=== PATIENT | male | born 2000 | race Caucasian/White ===

== ENCOUNTER 2021-06-25 10:36 | Inpatient (IN) ==
--- NOTE | 2021-06-25 11:05 | Emergency Department Note ---
Impression & Plan Suicidal ideation, Mood disorder ED Provider Note NAME: MEGAN CHAPPELL AGE: 20 SEX: M : 2000 ARRIVES VIA: [employer] INFORMANT: Patient ED PROVIDER(S): Antolin Matute DO CHIEF COMPLAINT: Suicidal and homicidal ideations HPI: Patient is a 21-year-old male who presents ER for suicidal and homicidal ideations. He notes these have been present for the past 2 weeks and gradually getting worse. Has been having more more difficulty trying to control them. He notes they are very sporadic and come with impulses and urges. He will see a knife and think about stabbing himself or see a building which is tall and think about jumping off. The same thing goes for when he sees someone. Intermittently things will drive him to want to kill someone but then he rationalizes it and is able to suppress these thoughts. He denies any auditory visual hallucinations. He has been eating and drinking. Stressors are his girlfriend as well in his school. He was on with caps today and was expressing these thoughts and consequently was brought in. He is agreeable for inpatient treatment. Admits to previous inpatient treatment in [place]. ROS: See above HPI for pertinent positives & negatives. A total of 10 systems reviewed and were otherwise negative. PAST MEDICAL HISTORY:See Below PAST SURGICAL HISTORY:See Below FAMILY HISTORY:See Below SOCIAL HISTORY:See Below HOME MEDICATIONS:See Below ALLERGIES:See Below VITALS:See Below PHYSICAL EXAMINATION: GENERAL: Sitting up in bed, alert, well appearing, well nourished, no distress, non-toxic EYE EXAM: normal conjunctiva. OROPHARYNX: no exudate, no erythema, lips, buccal mucosa, and tongue normal and mucous membranes are moist NECK: supple, no nuchal rigidity, no adenopathy, non-tender LUNGS: Clear to auscultation. Normal chest wall mechanics HEART: no murmurs, S1 normal and S2 normal ABDOMEN: abdomen soft, non-tender, normo-active bowel sounds, no masses, no rebound or guarding. BACK: Back is symmetrical on inspection and there is no deformity, no midline tenderness, no CVA tenderness. SKIN: no rashes and no bruising UPPER EXTREMITIES: upper extremities are grossly normal. LOWER EXTREMITIES: No pitting edema. NEURO EXAM: Normal sensorium, cranial nerves II-XII grossly intact, normal speech, no gross weakness of arms, no gross weakness of legs. PSYCH: Admits to SI and HI MEDICAL DECISION MAKING: Patient is a 20-year-old male who presents ER with above-stated complaint. He admits to suicidal ideations and homicidal ideations. IV was established blood work was obtained. Labs show mild leukopenia 4000. No significant anemia. BMP along with LFTs bilirubin and TSH was unremarkable. UA was clean. Tox was negative. Alcohol was negative. COVID was negative. He was medically stable and accepted to [address]. Start Time: 1100 Reason: Patient with PMHx of suicidal ideations underwent ED Observation for []. Fam Hx: No pertinent family history SocHx: See Below Assessment(s): Reevaluated multiple times resting comfortably Summary: As dictated in [facility] Disposition: 1430 on 06/25/2021 Total Time: 6hrs Triage Nursing notes reviewed. Limited review of prior medical records performed Vital Signs: reviewed and remarkable for HTN Differential diagnosis: Mood disorder, infection, hypoglycemia, electrolyte abnormalities, cardiac sources, intracerebral event, toxicologic, trauma, neurologic, as well as other pathologies. ER treatment provided: See below Diagnostics interpreted by me: Laboratory studies: As stated above and show below. 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 Beliefs That Will Affect Care: None Feels Safe at Home: Yes Assistive Devices: Glasses Home Meds Home Medications Medication Instructions Recorded Confirmed oxcarbazepine 300 mg PO BID 06/25/21 06/25/21 quetiapine 50 mg PO DIRECTED PRN 06/25/21 06/25/21 quetiapine 300 mg PO DAILY 06/25/21 06/25/21 Results & Data (ED) Vital Signs Vital Signs - 24 hr 06/25/21 10:42 Temperature 37.1 C Temperature Source Oral Pulse Rate 77 Pulse Rhythm Regular Pulse Strength Normal Respiratory Rate 20 Respiratory Effort / Characteristics Non-Labored Spontaneous Respiratory Depth Normal Respiratory Pattern Regular Blood Pressure 145/74 H Blood Pressure Mean 97 Blood Pressure Position Sitting Pulse Oximetry 99 Oxygen Delivery Method Room Air Sepsis Recent Fever Within 48 Hours No Sepsis New/Unexplained Change in Mental Status N/A Sepsis Action Taken by Nursing No Action Required Laboratory Data Result diagrams: 06/25/21 11:16 06/25/21 11:16 Lab Results 06/25/21 06/25/21 06/25/21 Range/Units 10:53 10:53 11:04 WBC (4.8-10.8) K/uL RBC (4.7-6.1) M/uL Hgb (14.0-18.0) g/dL Hct (42-52) % MCV (80-100) fL MCH (25-34) pg MCHC (32-36) g/dL RDW Std Deviation (36.4-46.3) fL RDW Coeff of Teressa (11.5-14.5) % Plt Count (130-400) K/uL MPV (7.4-10.4) fL Immature Gran % (Auto) % Neut % (Auto) % Lymph % (Auto) % Crisp % (Auto) % Eos % (Auto) % Baso % (Auto) % Neut # (Auto) (1.4-6.5) K/uL Lymph # (Auto) (1.2-3.4) K/uL Crisp # (Auto) (0.11-0.59) K/uL Eos # (Auto) (0-0.5) K/uL Baso # (Auto) (0-0.2) K/uL Immature Gran # (Auto) (0.00-0.02) K/uL Sodium (136-145) mmol/L Potassium (3.5-5.1) mmol/L Chloride (98-107) mmol/L Carbon Dioxide (21-32) mmol/L Anion Gap (3-11) BUN (6-23) mg/dl Creatinine (0.6-1.4) mg/dl Est Cr Clr Drug Dosing ml/min Est GFR ( Amer) ml/min Est GFR (Non-Af Amer) ml/min BUN/Creatinine Ratio (10-20) Glucose (70-99(Fasting)) mg/dl Calcium (8.5-10.1) mg/dl Total Bilirubin (0.2-1.0) mg/dl AST (13-39) U/L ALT (7-52) U/L Alkaline Phosphatase (34-104) U/L Total Protein (6.0-8.3) gm/dl Albumin (3.4-5.0) gm/dl Globulin (2.5-4.0) gm/dl Albumin/Globulin Ratio (0.9-2) TSH (0.300-4.500) uIu/ml Urine Color Yellow Urine Appearance Clear (Clear) Urine pH 6.5 (4.5-7.5) Ur Specific [place] 1.007 (1.000-1.030) Urine Protein Negative (Negative) Urine Glucose (UA) Negative (Negative) Urine Ketones Negative (Negative) Urine Blood Negative (Negative) Urine Nitrite Negative (Negative) Urine Bilirubin Negative (Negative) Urine Urobilinogen Negative (Negative) Ur Leukocyte Esterase Negative (Negative) Salicylates (3.0-30) mg/dl Urine Opiates Screen Neg (Neg) Ur Methadone, Qual Neg (Neg) Acetaminophen (10-30) ug/ml Urine Barbiturates Neg (Neg) Ur Phencyclidine (PCP) Neg (Neg) U Amphetamin/Meth Scrn Neg (Neg) MDMA (Ecstasy) Screen Neg (Neg) U Benzodiazepines Scrn Neg (Neg) Ur Cocaine Metabolite Neg (Neg) U Marijuana (THC) Screen Neg (Neg) Ethyl Alcohol mg/dL (<10.0) mg/dl SARS-CoV-2, RNA, NAAT NEGATIVE (NEGATIVE) 06/25/21 06/25/21 06/25/21 Range/Units 11:16 11:16 11:16 WBC 4.78 L (4.8-10.8) K/uL RBC 5.38 (4.7-6.1) M/uL Hgb 16.2 (14.0-18.0) g/dL Hct 46.5 (42-52) % MCV 86.4 (80-100) fL MCH 30.1 (25-34) pg MCHC 34.8 (32-36) g/dL RDW Std Deviation 40.9 (36.4-46.3) fL RDW Coeff of Teressa 12.9 (11.5-14.5) % Plt Count 262 (130-400) K/uL MPV 9.8 (7.4-10.4) fL Immature Gran % (Auto) 0.4 % Neut % (Auto) 52.6 % Lymph % (Auto) 33.7 % Crisp % (Auto) 9.8 % Eos % (Auto) 3.1 % Baso % (Auto) 0.4 % Neut # (Auto) 2.51 (1.4-6.5) K/uL Lymph # (Auto) 1.61 (1.2-3.4) K/uL Crisp # (Auto) 0.47 (0.11-0.59) K/uL Eos # (Auto) 0.15 (0-0.5) K/uL Baso # (Auto) 0.02 (0-0.2) K/uL Immature Gran # (Auto) 0.02 (0.00-0.02) K/uL Sodium 139 (136-145) mmol/L Potassium 4.5 (3.5-5.1) mmol/L Chloride 105 (98-107) mmol/L Carbon Dioxide 30 (21-32) mmol/L Anion Gap 4 (3-11) BUN 13 (6-23) mg/dl Creatinine 1.22 (0.6-1.4) mg/dl Est Cr Clr Drug Dosing 120.4 ml/min Est GFR ( Amer) 98.3 ml/min Est GFR (Non-Af Amer) 84.8 ml/min BUN/Creatinine Ratio 10.7 (10-20) Glucose 87 (70-99(Fasting)) mg/dl Calcium 9.5 (8.5-10.1) mg/dl Total Bilirubin 0.6 (0.2-1.0) mg/dl AST 16 (13-39) U/L ALT 15 (7-52) U/L Alkaline Phosphatase 89 (34-104) U/L Total Protein 7.0 (6.0-8.3) gm/dl Albumin 4.5 (3.4-5.0) gm/dl Globulin 2.5 (2.5-4.0) gm/dl Albumin/Globulin Ratio 1.8 (0.9-2) TSH 1.987 (0.300-4.500) uIu/ml Urine Color Urine Appearance (Clear) Urine pH (4.5-7.5) Ur Specific [place] (1.000-1.030) Urine Protein (Negative) Urine Glucose (UA) (Negative) Urine Ketones (Negative) Urine Blood (Negative) Urine Nitrite (Negative) Urine Bilirubin (Negative) Urine Urobilinogen (Negative) Ur Leukocyte Esterase (Negative) Salicylates (3.0-30) mg/dl Urine Opiates Screen (Neg) Ur Methadone, Qual (Neg) Acetaminophen (10-30) ug/ml Urine Barbiturates (Neg) Ur Phencyclidine (PCP) (Neg) U Amphetamin/Meth Scrn (Neg) MDMA (Ecstasy) Screen (Neg) U Benzodiazepines Scrn (Neg) Ur Cocaine Metabolite (Neg) U Marijuana (THC) Screen (Neg) Ethyl Alcohol mg/dL (<10.0) mg/dl SARS-CoV-2, RNA, NAAT (NEGATIVE) 06/25/21 06/25/21 Range/Units 11:16 11:16 WBC (4.8-10.8) K/uL RBC (4.7-6.1) M/uL Hgb (14.0-18.0) g/dL Hct (42-52) % MCV (80-100) fL MCH (25-34) pg MCHC (32-36) g/dL RDW Std Deviation (36.4-46.3) fL RDW Coeff of Teressa (11.5-14.5) % Plt Count (130-400) K/uL MPV (7.4-10.4) fL Immature Gran % (Auto) % Neut % (Auto) % Lymph % (Auto) % Crisp % (Auto) % Eos % (Auto) % Baso % (Auto) % Neut # (Auto) (1.4-6.5) K/uL Lymph # (Auto) (1.2-3.4) K/uL Crisp # (Auto) (0.11-0.59) K/uL Eos # (Auto) (0-0.5) K/uL Baso # (Auto) (0-0.2) K/uL Immature Gran # (Auto) (0.00-0.02) K/uL Sodium (136-145) mmol/L Potassium (3.5-5.1) mmol/L Chloride (98-107) mmol/L Carbon Dioxide (21-32) mmol/L Anion Gap (3-11) BUN (6-23) mg/dl Creatinine (0.6-1.4) mg/dl Est Cr Clr Drug Dosing ml/min Est GFR ( Amer) ml/min Est GFR (Non-Af Amer) ml/min BUN/Creatinine Ratio (10-20) Glucose (70-99(Fasting)) mg/dl Calcium (8.5-10.1) mg/dl Total Bilirubin (0.2-1.0) mg/dl AST (13-39) U/L ALT (7-52) U/L Alkaline Phosphatase (34-104) U/L Total Protein (6.0-8.3) gm/dl Albumin (3.4-5.0) gm/dl Globulin (2.5-4.0) gm/dl Albumin/Globulin Ratio (0.9-2) TSH (0.300-4.500) uIu/ml Urine Color Urine Appearance (Clear) Urine pH (4.5-7.5) Ur Specific [place] (1.000-1.030) Urine Protein (Negative) Urine Glucose (UA) (Negative) Urine Ketones (Negative) Urine Blood (Negative) Urine Nitrite (Negative) Urine Bilirubin (Negative) Urine Urobilinogen (Negative) Ur Leukocyte Esterase (Negative) Salicylates < 3.0 L (3.0-30) mg/dl Urine Opiates Screen (Neg) Ur Methadone, Qual (Neg) Acetaminophen < 3 L (10-30) ug/ml Urine Barbiturates (Neg) Ur Phencyclidine (PCP) (Neg) U Amphetamin/Meth Scrn (Neg) MDMA (Ecstasy) Screen (Neg) U Benzodiazepines Scrn (Neg) Ur Cocaine Metabolite (Neg) U Marijuana (THC) Screen (Neg) Ethyl Alcohol mg/dL < 10.0 (<10.0) mg/dl SARS-CoV-2, RNA, NAAT (NEGATIVE) Discharge Plan Visit Data Chief Complaint: Mental Health Evaluation Stated Complaint: [facility] ED Provider: Antolin Matute Discharge Problem: Suicidal ideation, Mood disorder Patient Disposition: Admitted As Inpatient Discharge Instructions Interventions: ED Discharge Assessment Last Done: 06/25/21 14:40
[2021-06-25 11:13] LABS: Appearance Urine Clear (Clear); Bilirubin Urine Negative (Negative); Blood Urine Negative (Negative); Color Urine Yellow; Glucose Urine UA Negative (Negative); Ketones Urine Negative (Negative); Leukocyte Esterase Urine Negative (Negative); Nitrite Urine Negative (Negative); Protein Urine Negative (Negative); Specific Gravity Urine 1.007 (1.000-1.030); Urobilinogen Urine Negative (Negative); pH Urine 6.5 (4.5-7.5)
[2021-06-25 11:50] LABS: Amphetamines+Metham, Urine Neg (Neg); Barbiturates, Urine Neg (Neg); Benzodiazepine, Urine Neg (Neg); Cocaine, Urine Neg (Neg); MDMA (Ecstacy), Urine Neg (Neg); Methadone, Urine Neg (Neg); Opiate, Urine Neg (Neg); Phencyclidine, Urine Neg (Neg)
[2021-06-25 11:55] LABS: Basophils # (auto) 0.02 K/uL (0-0.2); Basophils % (auto) 0.4 %; Eosinophils # (auto) 0.15 K/uL (0-0.5); Eosinophils % (auto) 3.1 %; Hematocrit (blood only) 46.5 % (42-52); Hemoglobin 16.2 g/dL (14.0-18.0); Immature Granulocytes # (auto) 0.02 K/uL (0.00-0.02); Immature Granulocytes % (auto) 0.4 %; Lymphocytes # (auto) 1.61 K/uL (1.2-3.4); Lymphocytes % (auto) 33.7 %; Mean Corpuscular Hemoglobin 30.1 pg (25-34); Mean Corpuscular Hgb Conc 34.8 g/dL (32-36); Mean Corpuscular Volume 86.4 fL (80-100); Mean Platelet Volume 9.8 fL (7.4-10.4); Monocytes # (auto) 0.47 K/uL (0.11-0.59); Monocytes % (auto) 9.8 %; Neutrophils # (auto) 2.51 K/uL (1.4-6.5); Neutrophils % (auto) 52.6 %; Platelet Count 262 K/uL (130-400); RDW Coefficient of Variation 12.9 % (11.5-14.5); RDW Standard Deviation 40.9 fL (36.4-46.3); Red Blood Count 5.38 M/uL (4.7-6.1); White Blood Count 4.78 K/uL (4.8-10.8)
[2021-06-25 12:17] LABS: Acetaminophen < 3 ug/ml (10-30); Salicylate < 3.0 mg/dl (3.0-30)
[2021-06-25 12:18] LABS: Albumin Globulin Ratio 1.8 (0.9-2); Albumin Level 4.5 gm/dl (3.4-5.0); BUN Creatinine Ratio 10.7 (10-20); Bilirubin,Total 0.6 mg/dl (0.2-1.0); Calcium 9.5 mg/dl (8.5-10.1); Creatinine Clr Calc Pharmacy 120.4 ml/min; Est GFR (African American) 98.3 ml/min; Est GFR (Non-African American) 84.8 ml/min; Globulin 2.5 gm/dl (2.5-4.0); Potassium 4.5 mmol/L (3.5-5.1)
[2021-06-25] MEDS ORDERED: ACETAMINOPHEN 325 MG TAB PO PRN (14:11)
[2021-06-25] MEDS ORDERED: MAGNESIUM HYDROXIDE SUSP 30 ML UDC PO PRN (14:11)
[2021-06-25] MEDS ORDERED: BISMUTH SUBSALICYLATE LIQD 236 ML PO PRN (14:11)
[2021-06-25] MEDS ORDERED: SODIUM CHLORIDE 0.65% NA SOLN 45 ML (OCEAN) PRN (14:11)
[2021-06-25] MEDS ORDERED: hydrOXYzine HCl 25 MG TAB PO PRN ×2 (14:11)
[2021-06-25] MEDS ORDERED: ALUMINUM/MAGNESIUM SUSP 30 ML UDC PO PRN (14:11)
--- NOTE | 2021-06-25 16:50 | History & Physical ---
Date of Service June 25, 2021 Impression / Recommendations Impression The patient is a 20 year old man with a history of behavioral dysregulation during childhood and chronic intrusive HI who was admitted for worsening intrusive HI and SI with plans of stabbing himself or jumping off building. Diagnostically unclear at this point, differential includes: MDD with irritability vs OCD vs antisocial PD type picture vs DMDD vs ASD. Also engages in binge drinking but does not meet criteria for disorder given no negative consequences per his report and use is intermittent. The patient is deemed unstable and requires psychiatric hospitalization for diagnostic clarification, safety and stabilization, medication management and development of further coping skills. Discussed medication treatment options in detail including continuing on current mood stabilizer and seroquel versus alternative option such as an SSRI or alternative mood stabilizer or antipsychotic. Discussed risks, benefits and alternatives. Patient would like to continue with his oxcarbazepine and seroquel for now .Reviewed side effects including but not limited to: movement (TD, NMS), cardiac (QTc prolongation), and metabolic (stroke, insulin resistance) and necessity for fasting lipid and glucose labwork and AIMS done with score of 0. The patient's use history suggests problematic substance use. Brief intervention was offered and accepted. Intervention was greater than 5 minutes in length and included assessing readiness to quit, advice on how to reduce or abstain and to set a specific goal for this hospitalization. bridge gang worker will also assist in anticipating barriers to reducing or abstaining from substance use and in problem-solving for solutions to those problems while arranging for referral to appropriate treatment. The patient is in contemplative stage with regards to transtheoretical model of change. The patient is advised to decrease consumption due to depressant effects, disinhibition, potential to increase risk of violence and risk of interaction with prescription medications. The patient agreed to reduce his use, feels able to do this without residential or IOP treatment and will be provided with recovery materials to continue to educate self on how to cope with their condition without using substances. Acute risk of harm to others is moderate and elevated from his chronically elevated baseline risk due to intensifying of his HI, has recently missed doses of his medication and feels able to control his thoughts and impulses. However, feels he can discuss with staff if his thoughts worsen here. MNPR due to HI that is triggered when around other men. (1) Suicidal ideation: (2) Homicidal ideations: (3) Mood disorder: 06/25/21: The patient was admitted to the [facility] on q15 min checks (behavioral with suicide precautions) for safety. The patient will participate in group, recreational, and milieu therapies and will be offered additional individual and family sessions as clinically appropriate. -fasting glucose and lipid panel -continue with oxcarbazepine 300mg BID -continue with seroquel 300mg qhs and 50mg qd prn -Y-BOCS -attempt records from [facility] Inventory Assets Strengths: supportive girlfriend and friends, motivated to seek treatment/help Needs: additional coping skills, safety/stabilization, addtl outpatient supports Suicide Risk Level Suicide Risk Level: High (q15 min suicide checks) Suicide Risk Level Comments: Acute risk is high given intrusive SI with plans prior to admission but none since admission and feels safe in the hospital. Risk Factors Assessment Male: Yes : Yes Do You Have Access To A Gun?: No Health Problems: No Mental Health Diagnoses: Yes Substance Use Disorders: No Previous Attempt: No Family History of Suicide: No Previous Psychiatric Hospitalization: Yes Hopelessness: Yes Protective Factors Assessment Employed: No Stable Relationships: Yes Supportive Family: Yes Psychiatric History Identifying Data MEGAN CHAPPELL is a 20-year-old man and [employer] who currently lives in [place] with roommates and his girlfriend, has a history of behavioral dysreg ulation in childhood, and was admitted on 06/25/21 14:11 on a 201 voluntary commitment for SI with plans and non-specific HI. Chief Complaint "The intensity of my intrusive thoughts has been increasing". History of Present Illness Megan presents for psychiatric admission for a few weeks of worsening "intensity of intrusive thoughts" with SI with various plans and non-specific HI in the context of multiple psychosocial stressors including academic, financial, medication non-adherence and his girlfriend being away. His girlfriend lives with him in [place] but has been gone for the last month for extended inpatient psychiatry treatment. He was brought to the ED via [facility] after reporting SI and HI during his [employer] [facility] urgent teletherapy appointment yesterday. He reports intrusive SI and non-specific HI which have worsened over the last two weeks and seem to be intensifying and he is worried he may act on these thoughts as he is feeling more disconnected from his thoughts and body. He has been thinking about jumping off a building or stabbing himself as well as increased irritability leading to intrusive thoughts of hurting people when he walks by them. These thoughts come "randomly" usually when he is talking to someone directly and it's "a thought of violence toward them like hitting them or any sort of violent action toward them, it's not as much a thought as playing it out in my mind and watching myself do it". He notes the thought comes "but I shoot it down because it's a bad idea". When he was in his teens he would be aggressive toward peers until "I learned to control it". No recent physical altercations or fights or aggression since childhood. These thoughts occur less when he's drinking. He denies any current psychotic symptoms. Sometimes when he falls asleep he worries someone might come into his room and attack him. He deals with this by just trying to fall asleep "because I know the thought is irrational and convince myself it's not going to happen". He's had the intrusive HI since age 10, he never had SI until the last few weeks. Lately he's also felt more hopeless "like life generally is not worth it in the half-way". Endorses depression symptoms including: decreased sleep (~5 or 6 hours, initial onset insomnia), increased appetite, energy level is stable, no anhedonia (likes going to the gym, writing, [employer] D[employer] games). Has been struggling academically with keeping up with his work, denies concentration rather states it's about "valuing the work I'm doing so I actually do it". He is currently prescribed seroquel 300mg qhs and 50mg daily prn as well as oxcarbazepine 300mg BID but has only been taking them intermittently recently and skipping doses as he was running low on his scripts because his PCP left the practice so he's between providers as well as financial issues. They were started about one year ago after inpatient admission in [facility] and he recalls the seroquel was to sleep and the trileptal was for mood stabilization. He hasn't told his parents he's here noting "I just don't think it's very important to tell them, I'll tell them when I get out". Notes he views them as more "close friends rather than anything more then that". Psychiatric ROS notable for denial of current or hx of gordon, denial of hx psychosis, no hx self-harm, no hx disordered eating, [OCD], denies anxiety, denies trauma/PTSD, denies dissociation/depersonalization. Past Psychiatric History Previous Psych History: partial and IOP program at [facility] in 2020 Current Psychiatric Diagnosis: anger management in childhood but no formal diagnosis Outpatient Services: [facility] once yesterday for crisis appointment due to increased stress Previous Psych Admissions: once in April 2020 at [facility] because the HI was getting very intense and he felt like he couldn't stop himself "to make the urges easier to manage", no violence at that time but he felt like it could progress to that point. Do You Have Access To A Gun?: No History of Previous Suicide Attempt: No Past Medication Trials: no past trials Past Head Trauma/Neuro History History of Concussion/Seizure: No Allergies Allergy/AdvReac Type Severity Reaction Status Date / Time No Known Allergies Allergy Verified 06/26/21 11:06 Home Medications Medication Instructions Recorded Confirmed Type oxcarbazepine 300 mg PO BID 06/25/21 06/25/21 History quetiapine 50 mg PO DIRECTED PRN 06/25/21 06/25/21 History quetiapine 300 mg PO DAILY 06/25/21 06/25/21 History Family History Family History of: Depression (2 older siblings) Alcohol History Hx of Alcohol Use Over the Past 12 Months: Yes (Socially) AUDIT Total Score: 0 Drinks only at parties ~ every other week and will consume anywhere from 3-18 beers; denies blackouts, no legal consequences, no neg social or academic consequences Smoking Use Have You Smoked or Used Tobacco Products in the Last 30 Days: Yes tobacco type: cigarettes Smoking Status: Current every day smoker Smoking packs per day: 0.05 Substance History Hx of Prescription Med Misuse Over the Past 12 Months: No Hx of Over the Counter Med Misuse Over the Past 12 Months: No Hx of Inhalent Misuse Over the Past 12 Months: No Hx of Organic Substance Use Over the Past 12 Months: No Hx of Illegal Substances/Street Drug Use Over Past 12 Months: No Problems as a Result of Past Substance Use: None Identified Personal History Living Arrangements: Apartment (with 5 roommates) Childhood: Grew up in [place] in [facility] and then moved [place] the [place] ago [place]. Parents -mom and stepdad live in [place] and father lives in the . Has 2 step siblings and 2 bio siblings and one haf sibling. 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) Marital Status: Single (has gf they've been together about 1 year) Beliefs That Will Affect Care: None Current Legal Problems: No Hx Legal Problems: No Patient History Medical History (Updated 06/26/21 @ 11:57 by Addis Mcwilliams MD) Homicidal ideations Social History Smoking Status: Current every day smoker Preferred Language: Burundian Communication Ability: Effective Courtroom Deputy Required: No Beliefs That Will Affect Care: None Feels Safe at Home: Yes Assistive Devices: Glasses Review of Systems Review of Systems: All systems reviewed & are unremarkable except as noted in HPI & below Physical Exam Psychiatric: Orientation: alert and oriented x 3 Apperance: appropriately dressed and appropriately groomed Eye Contact: good eye contact Motor Behavior: no abnormal motor movements Speech: normal rate/rhythm/volume of speech Affect: + flat affect Mood: + depressed mood; no anxious mood and no irritable mood Thought Process: goal directed thought process Thought Content: reality based without delusions Suicidal Thoughts: denies suicidal intent; + reports suicidal thoughts (intermittent, feels safe in the hospital ) and + reports suicidal plan (stabbing with knife or jumping building) Homicidal Thoughts: denies homicidal plan and denies homicidal intent; + reports homicidal thoughts (vague non-specific anger toward others, denies currently) Hallucinations: no auditory hallucinations and no visual hallucinations Cognition: recent memory grossly intact, remote memory grossly intact, attention grossly intact and language grossly intact Estimated Intelligence: consistent with education level Insight: + limited insight Judgement: + limited judgement Vital Signs (Past 24 Hours): Last Vital Signs Temp 37.0 C 06/25/21 14:49 Pulse 56 L 06/25/21 14:49 Resp 18 06/25/21 14:49 BP 120/76 06/25/21 14:49 Pulse Ox 98 06/25/21 14:12 Exam Statement: A physical exam was performed in the ED by Dr. Matute for the purposes of medical clearance. I accept that physical as correct and adequate for the purposes of the inpatient physical exam. Results & Data ([facility]) Laboratory Results Laboratory Results - last 24 hr 06/25/21 06/25/21 06/25/21 10:53 10:53 11:04 WBC RBC Hgb Hct MCV MCH MCHC RDW Std Deviation RDW Coeff of Teressa Plt Count MPV Immature Gran % (Auto) Neut % (Auto) Lymph % (Auto) [place] % (Auto) Eos % (Auto) Baso % (Auto) Neut # (Auto) Lymph # (Auto) [place] # (Auto) Eos # (Auto) Baso # (Auto) Immature Gran # (Auto) Sodium Potassium Chloride Carbon Dioxide Anion Gap BUN Creatinine Est Cr Clr Drug Dosing Est GFR ( Amer) Est GFR (Non-Af Amer) BUN/Creatinine Ratio Glucose Calcium Total Bilirubin AST ALT Alkaline Phosphatase Total Protein Albumin Globulin Albumin/Globulin Ratio TSH Urine Color Yellow Urine Appearance Clear Urine pH 6.5 Ur Specific [place] 1.007 Urine Protein Negative Urine Glucose (UA) Negative Urine Ketones Negative Urine Blood Negative Urine Nitrite Negative Urine Bilirubin Negative Urine Urobilinogen Negative Ur Leukocyte Esterase Negative Salicylates Urine Opiates Screen Neg Ur Methadone, Qual Neg Acetaminophen Urine Barbiturates Neg Ur Phencyclidine (PCP) Neg U Amphetamin/Meth Scrn Neg MDMA (Ecstasy) Screen Neg U Benzodiazepines Scrn Neg Ur Cocaine Metabolite Neg U Marijuana (THC) Screen Neg Ethyl Alcohol mg/dL SARS-CoV-2, RNA, NAAT NEGATIVE 06/25/21 06/25/21 06/25/21 11:16 11:16 11:16 WBC 4.78 L RBC 5.38 Hgb 16.2 Hct 46.5 MCV 86.4 MCH 30.1 MCHC 34.8 RDW Std Deviation 40.9 RDW Coeff of Teressa 12.9 Plt Count 262 MPV 9.8 Immature Gran % (Auto) 0.4 Neut % (Auto) 52.6 Lymph % (Auto) 33.7 [place] % (Auto) 9.8 Eos % (Auto) 3.1 Baso % (Auto) 0.4 Neut # (Auto) 2.51 Lymph # (Auto) 1.61 [place] # (Auto) 0.47 Eos # (Auto) 0.15 Baso # (Auto) 0.02 Immature Gran # (Auto) 0.02 Sodium 139 Potassium 4.5 Chloride 105 Carbon Dioxide 30 Anion Gap 4 BUN 13 Creatinine 1.22 Est Cr Clr Drug Dosing 120.4 Est GFR ( Amer) 98.3 Est GFR (Non-Af Amer) 84.8 BUN/Creatinine Ratio 10.7 Glucose 87 Calcium 9.5 Total Bilirubin 0.6 AST 16 ALT 15 Alkaline Phosphatase 89 Total Protein 7.0 Albumin 4.5 Globulin 2.5 Albumin/Globulin Ratio 1.8 TSH 1.987 Urine Color Urine Appearance Urine pH Ur Specific [place] Urine Protein Urine Glucose (UA) Urine Ketones Urine Blood Urine Nitrite Urine Bilirubin Urine Urobilinogen Ur Leukocyte Esterase Salicylates Urine Opiates Screen Ur Methadone, Qual Acetaminophen Urine Barbiturates Ur Phencyclidine (PCP) U Amphetamin/Meth Scrn MDMA (Ecstasy) Screen U Benzodiazepines Scrn Ur Cocaine Metabolite U Marijuana (THC) Screen Ethyl Alcohol mg/dL SARS-CoV-2, RNA, NAAT 06/25/21 06/25/21 11:16 11:16 WBC RBC Hgb Hct MCV MCH MCHC RDW Std Deviation RDW Coeff of Teressa Plt Count MPV Immature Gran % (Auto) Neut % (Auto) Lymph % (Auto) [place] % (Auto) Eos % (Auto) Baso % (Auto) Neut # (Auto) Lymph # (Auto) [place] # (Auto) Eos # (Auto) Baso # (Auto) Immature Gran # (Auto) Sodium Potassium Chloride Carbon Dioxide Anion Gap BUN Creatinine Est Cr Clr Drug Dosing Est GFR ( Amer) Est GFR (Non-Af Amer) BUN/Creatinine Ratio Glucose Calcium Total Bilirubin AST ALT Alkaline Phosphatase Total Protein Albumin Globulin Albumin/Globulin Ratio TSH Urine Color Urine Appearance Urine pH Ur Specific [place] Urine Protein Urine Glucose (UA) Urine Ketones Urine Blood Urine Nitrite Urine Bilirubin Urine Urobilinogen Ur Leukocyte Esterase Salicylates < 3.0 L Urine Opiates Screen Ur Methadone, Qual Acetaminophen < 3 L Urine Barbiturates Ur Phencyclidine (PCP) U Amphetamin/Meth Scrn MDMA (Ecstasy) Screen U Benzodiazepines Scrn Ur Cocaine Metabolite U Marijuana (THC) Screen Ethyl Alcohol mg/dL < 10.0 SARS-CoV-2, RNA, NAAT Current Inpatient Medications Current Inpatient Medications: Current Inpatient Medications Acetaminophen (Acetaminophen 325 Mg Tab) 650 mg PO Q4H PRN PRN Reason: Headache or Minor Fever Stop: 07/25/21 14:10 Al Hydrox/Mg Hydrox/Simethicone (Aluminum/Magnesium Susp 30 Ml Udc) 30 ml PO Q4H PRN PRN Reason: GI Upset Stop: 07/25/21 14:10 Bismuth Subsalicylate (Bismuth Subsalicylate Liqd 236 Ml) 15 ml PO PRN PRN PRN Reason: Loose Stool Stop: 07/25/21 14:10 Hydroxyzine HCl (Hydroxyzine Hcl 25 Mg Tab) 50 mg PO HSZ PRN PRN Reason: Insomnia Stop: 07/25/21 14:10 Hydroxyzine HCl (Hydroxyzine Hcl 25 Mg Tab) 25 mg PO Q4H PRN PRN Reason: Anxiety Stop: 07/25/21 14:10 Magnesium Hydroxide (Magnesium Hydroxide Susp 30 Ml Udc) 30 ml PO DAILY PRN PRN Reason: Constipation Stop: 07/25/21 14:10 Sodium Chloride (Sodium Chloride 0.65% Na Soln 45 Ml ([place])) 1 - 2 sprays NA PRN PRN PRN Reason: Nasal Dryness/Congestion Stop: 07/25/21 14:10
[2021-06-25] MEDS ORDERED: QUEtiapine FUMARATE 25 MG TABLET PO PRN (19:48)
[2021-06-25] MEDS: OXcarbazepine 150 MG TABLET PO SCH (20:46)
[2021-06-25] MEDS ORDERED: QUEtiapine FUMARATE 300 MG TABLET PO SCH (22:00)
[2021-06-26] MEDS: OXcarbazepine 150 MG TABLET PO SCH ×2 (08:49→21:26)
[2021-06-26] MEDS: ACYCLOVIR 400 MG TAB PO SCH (21:26)
[2021-06-26] MEDS: NICOTINE POLACRILEX 2 MG GUM MT PRN (21:27)
[2021-06-26] MEDS ORDERED: QUEtiapine FUMARATE 25 MG TABLET PO SCH (22:00)
[2021-06-27] MEDS: ACYCLOVIR 400 MG TAB PO SCH ×2 (08:38→20:41)
[2021-06-27] MEDS: OXcarbazepine 150 MG TABLET PO SCH (08:38)
[2021-06-27 08:57] LABS: Chol HDL Ratio 3.1 (0-5)
--- NOTE | 2021-06-27 09:17 | Psychiatric Progress Note ---
Date of Service June 27, 2021 Impression / Recommendations Impression The patient is a 20 year old man with a history of behavioral dysregulation during childhood and chronic intrusive HI who was admitted for worsening intrusive HI and SI with plans of stabbing himself or jumping off building. Diagnostically seems most consistent with OCD as well as some antisocial behaviors (more consistent with later adolescent onset with better prognostic course of illness). 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 Also engages in binge drinking but does not meet criteria for disorder given no negative consequences per his report and use is intermittent. The patient is deemed unstable and requires psychiatric hospitalization for diagnostic clarification, safety and stabilization, medication management and development of further coping skills. Acute risk of harm to others is moderate and elevated from his chronically elevated baseline risk due to intensifying of his HI, has recently missed doses of his medication and feels able to control his thoughts and impulses. However, feels he can discuss with staff if his thoughts worsen here. MNPR due to HI that is triggered when around other men. 06/27/21: Reviewed records from prior hospitalization at [facility], [employer] [facility] notes and his Y-BOCS. Some lessening of intensity of intrusive thoughts. Discussed medication treatment options in detail again after reviewing records including continuing on current mood stabilizer and seroquel versus alternative option such as an SSRI or alternative mood stabilizer or antipsychotic. Discussed risks, benefits and alternatives. He would like to start sertraline for OCD and depression as well as trazodone prn for insomnia and risperidone for OCD augmentation (especially until SSRI can be titrated and take full effect) and to reduce potential impulsivity should HI worsen in the future. Reviewed side effects for risperidone including but not limited to: movement (TD, NMS), cardiac (QTc prolongation), and metabolic (stroke, insulin resistance). Reviewed side effects for sertraline and trazodone including but not limited to: GI, LYNN, sexual side effects, and counseled on black box warning of potential for emergence of or increased SI and need to let staff know should this occur or should they feel unsafe. Also discussed importance of seeking emergency care following discharge if this side effect occurs in the future. Reviewed fasting labs-normal. (1) Obsessive compulsive disorder: (2) Adult antisocial behavior: (3) Suicidal ideation: (4) Homicidal ideations: (5) Mood disorder: 06/26/21: Discontinue oxcarbazepine and seroquel. Start sertraline 25mg qd. Start risperidone 0.25 mg qAM & 0.5 mg qhs. Trazodone 50mg qhs prn for insomnia. 06/25/21: The patient was admitted to the [facility] ([facility] mental [facility] unit) on q15 min checks (behavioral with suicide precautions) for safety. The patient will participate in group, recreational, and milieu therapies and will be offered additional individual and family sessions as clinically appropriate. -fasting glucose and lipid panel -continue with oxcarbazepine 300mg BID -continue with seroquel 300mg qhs and 50mg qd prn -Y-BOCS -attempt records from [place] Suicide Risk Level Suicide Risk Level: High (q15 min suicide checks) Suicide Risk Level Comments: Acute risk is high given intrusive SI with plans prior to admission but none since admission and feels safe in the hospital. Risk Factors Assessment Male: Yes : Yes Do You Have Access To A Gun?: No Health Problems: No Mental Health Diagnoses: Yes Substance Use Disorders: No Previous Attempt: No Family History of Suicide: No Previous Psychiatric Hospitalization: Yes Hopelessness: Yes Protective Factors Assessment Employed: No Stable Relationships: Yes Supportive Family: Yes Interval History Identifying Information MEGAN CHAPPELL is a 20-year-old man and [employer] melissa who currently lives in [place] with roommates and his girlfriend, has a history of behavioral dysregulation in childhood, and was admitted on 06/25/21 14:11 on a 201 voluntary commitment for SI with plans and non-specific HI. Chief Complaint "I'm ok the intrusive thoughts are a similar frequency but the intensity is not too bad". Review of Systems Sleep Information Total Hours of Sleep: 7 Meal Information Percent Meal Consumed - Breakfast: 100 Percent Meal Consumed - Lunch: 100 Percent Meal Consumed - Dinner: 100 Subjective Subjective Patient was seen & assessed and interval progress reviewed with treatment team nursing and social work. Spent time with a peer watching a movie and attended to personal hygiene. Reviewed records from prior hospitalization at [facility] CAPS notes and his Y-BOCS. Discussed with Megan the information found in these documents. He feels he has some symptoms consistent with antisocial PD (stealing, hx property damage, decreased empathy, deceitfulness, hx lack of remorse when aggressive as a child) but also some things that are inconsistent (no hx harming animals in fact states he "loves animals", no recent hx of unlawful acts, physical fights, or disregard for safety). Reviewed Y-BOCS and he noted multiple aggressive, sexual, miscellaneous obsessions and checking compulsion of needing to ensure others aren't harmed when he touches them (i.e. can't proceed with a conversation with a peer if he greets them with a tap on the back until he checks they aren't hurt even though part of him knows it was not a hard tap and wouldn't have hurt them). Reviewed that challenge of paying for oxcarbazepine is that it is not covered by insurance. He has not been doing well academically. States he feels he can control the urges that come with the intrusive thoughts but would love to consider a medication that is cheaper and could help reduce the frequency of intrusive thoughts. Physical Exam Psychiatric Orientation: alert and oriented x 3 Apperance: appropriately dressed and appropriately groomed Eye Contact: good eye contact Motor Behavior: no abnormal motor movements Speech: normal rate/rhythm/volume of speech Affect: euthymic affect Mood: + depressed mood; no anxious mood and no irritable mood Thought Process: goal directed thought process Thought Content: reality based without delusions Suicidal Thoughts: denies suicidal intent; + reports suicidal thoughts (intermittent, feels safe in the hospital ) and + reports suicidal plan (stabbing with knife or jumping building) Homicidal Thoughts: denies homicidal plan and denies homicidal intent; + reports homicidal thoughts (vague non-specific anger toward others, denies currently) Hallucinations: no auditory hallucinations and no visual hallucinations Cognition: recent memory grossly intact, remote memory grossly intact, attention grossly intact and language grossly intact Estimated Intelligence: consistent with education level Insight: + limited insight Judgement: + limited judgement Vital Signs (Past 24 Hours) Last Vital Signs Temp 36.6 C 06/27/21 06:00 Pulse 90 06/27/21 06:28 Resp 16 06/27/21 06:00 BP 95/63 L 06/27/21 06:28 Pulse Ox 98 06/25/21 14:12 Results & Data ([facility]) Laboratory Results Laboratory Results - last 24 hr 06/27/21 08:12 Fasting Glucose 87 Triglycerides 87 Cholesterol 132 LDL Cholesterol, Calc 72 VLDL Cholesterol, Calc 17 HDL Cholesterol 43 Cholesterol/HDL Ratio 3.1 Current Inpatient Medications Current Inpatient Medications: Current Inpatient Medications Acetaminophen (Acetaminophen 325 Mg Tab) 650 mg PO Q4H PRN PRN Reason: Headache or Minor Fever Stop: 07/25/21 14:10 Acyclovir (Acyclovir 400 Mg Tab) 400 mg PO BID DIONICIO Stop: 07/06/21 20:59 Last Admin: 06/27/21 08:38 Dose: 400 mg Documented by: Al Hydrox/Mg Hydrox/Simethicone (Aluminum/Magnesium Susp 30 Ml Udc) 30 ml PO Q4H PRN PRN Reason: GI Upset Stop: 07/25/21 14:10 Bismuth Subsalicylate (Bismuth Subsalicylate Liqd 236 Ml) 15 ml PO PRN PRN PRN Reason: Loose Stool Stop: 07/25/21 14:10 Hydroxyzine HCl (Hydroxyzine Hcl 25 Mg Tab) 50 mg PO HSZ PRN PRN Reason: Insomnia Stop: 07/25/21 14:10 Hydroxyzine HCl (Hydroxyzine Hcl 25 Mg Tab) 25 mg PO Q4H PRN PRN Reason: Anxiety Stop: 07/25/21 14:10 Magnesium Hydroxide (Magnesium Hydroxide Susp 30 Ml Udc) 30 ml PO DAILY PRN PRN Reason: Constipation Stop: 07/25/21 14:10 Nicotine Polacrilex (Nicotine Polacrilex 2 Mg Gum) 1 piece MT PRN PRN PRN Reason: Nicotine withdrawal Stop: 07/26/21 20:01 Last Admin: 06/26/21 21:27 Dose: 1 piece Documented by: Oxcarbazepine (Oxcarbazepine 150 Mg Tablet) 150 mg PO BID DIONICIO Stop: 07/26/21 20:59 Last Admin: 06/27/21 08:38 Dose: 150 mg Documented by: Quetiapine Fumarate (Quetiapine Fumarate 25 Mg Tablet) 50 mg PO HS DIONICIO Stop: 07/26/21 21:59 Last Admin: 06/26/21 21:26 Dose: 50 mg Documented by: Sodium Chloride (Sodium Chloride 0.65% Na Soln 45 Ml ([place])) 1 - 2 sprays NA PRN PRN PRN Reason: Nasal Dryness/Congestion Stop: 07/25/21 14:10 Mental Health & Subst Abuse Tx Therapist Name of Therapist: Vasu Thorne [facility]S Fishing Boat Mate Name of Fishing Boat Mate: None Post Discharge Appointments Primary Care Physician Name Of Family Doctor: None
[2021-06-27] MEDS: SERTRALINE HCL 50 MG TABLET PO SCH (15:51)
[2021-06-27] MEDS: risperiDONE 0.5 MG TABLET PO SCH (20:41)
[2021-06-27] MEDS: traZODone HCL 50 MG TAB PO PRN (21:46)
[2021-06-27] MEDS: NICOTINE POLACRILEX 2 MG GUM MT PRN (21:47)
[2021-06-28] MEDS: SERTRALINE HCL 50 MG TABLET PO SCH (08:25)
[2021-06-28] MEDS: ACYCLOVIR 400 MG TAB PO SCH ×2 (08:26→21:34)
[2021-06-28] MEDS: risperiDONE 0.5 MG TABLET PO SCH ×2 (08:26→21:34)
--- NOTE | 2021-06-28 09:02 | Psychiatric Progress Note ---
Date of Service June 28, 2021 Impression / Recommendations Impression The patient is a 20 year old man with a history of behavioral dysregulation during childhood and chronic intrusive HI who was admitted for worsening intrusive HI and SI with plans of stabbing himself or jumping off building. Diagnostically seems most consistent with OCD as well as some antisocial behaviors (more consistent with later adolescent onset with better prognostic course of illness). 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 Also engages in binge drinking but does not meet criteria for disorder given no negative consequences per his report and use is intermittent. The patient is deemed unstable and requires psychiatric hospitalization for diagnostic clarification, safety and stabilization, medication management and development of further coping skills. Acute risk of harm to others is moderate and elevated from his chronically elevated baseline risk due to intensifying of his HI, has recently missed doses of his medication and feels able to control his thoughts and impulses. However, feels he can discuss with staff if his thoughts worsen here. MNPR due to HI that is triggered when around other men. 06/28/21: Ongoing intrusive HI, SI has lessened today. Tolerating sertraline and risperidone and trazodone so far. Will continue to monitor fatigue and if persists consider consolidating risperidone dose at qhs. Further dose titration may be needed. Attended 30 minute conference video call with student care and advocacy and CAPS to discuss ways to support Megan. (1) Obsessive compulsive disorder: (2) Adult antisocial behavior: (3) Suicidal ideation: (4) Homicidal ideations: (5) Mood disorder: 06/27/21: Continue current medications and tx plan. 06/26/21: Discontinue oxcarbazepine and seroquel. Start sertraline 25mg qd. Start risperidone 0.25 mg qAM & 0.5 mg qhs. Trazodone 50mg qhs prn for insomnia. 06/25/21: The patient was admitted to [facility]) on q15 min checks (behavioral with suicide precautions) for safety. The patient will participate in group, recreational, and milieu therapies and will be offered additional individual and family sessions as clinically appropriate. -fasting glucose and lipid panel -continue with oxcarbazepine 300mg BID -continue with seroquel 300mg qhs and 50mg qd prn -Y-BOCS -attempt records from [place] Suicide Risk Level Suicide Risk Level: High (q15 min suicide checks) Suicide Risk Level Comments: Acute risk is high given intrusive SI with plans prior to admission but decreasing since admission and feels safe in the hospital. Risk Factors Assessment Male: Yes : Yes Do You Have Access To A Gun?: No Health Problems: No Mental Health Diagnoses: Yes Substance Use Disorders: No Previous Attempt: No Family History of Suicide: No Previous Psychiatric Hospitalization: Yes Hopelessness: Yes Protective Factors Assessment Employed: No Stable Relationships: Yes Supportive Family: Yes Interval History Identifying Information MEGAN CHAPPELL is a 20-year-old man and [employer] melissa who currently lives in [place] with roommates and his girlfriend, has a history of behavioral dysregulation in childhood, and was admitted on 06/25/21 14:11 on a 201 voluntary commitment for SI with plans and non-specific HI. Chief Complaint "I'm tired today". Review of Systems Sleep Information Total Hours of Sleep: 8.5 Meal Information Percent Meal Consumed - Breakfast: 100 Percent Meal Consumed - Lunch: 100 Percent Meal Consumed - Dinner: 100 Subjective Subjective Patient was seen & assessed and interval progress reviewed with treatment team nursing and social work. States he had more difficulty sleeping which he attributes to a lot of noise in the morning in the hallway on the unit. He thinkks this is causing his fatigue today. He denies any other side effects from the medications. Today intrusive SI is decreasing and "less so, only though about it once or twice today". Continues to have intrusive HI states it is "ok". Intensity is still the same but frequency is variable was a bit more this morning and slightly less this afternoon. He hasn't noticed any benefit from the risperidone so far in helping to reduce these thoughts. Physical Exam Psychiatric Orientation: alert and oriented x 3 Apperance: appropriately dressed and appropriately groomed Eye Contact: good eye contact Motor Behavior: no abnormal motor movements Speech: normal rate/rhythm/volume of speech Affect: euthymic affect Mood: + depressed mood; no anxious mood and no irritable mood Thought Process: goal directed thought process Thought Content: reality based without delusions Suicidal Thoughts: denies suicidal intent; + reports suicidal thoughts (intermittent, feels safe in the hospital ) and + reports suicidal plan (stabbing with knife or jumping building) Homicidal Thoughts: denies homicidal plan and denies homicidal intent; + reports homicidal thoughts (vague non-specific anger toward others, intermittent) Hallucinations: no auditory hallucinations and no visual hallucinations Cognition: recent memory grossly intact, remote memory grossly intact, attention grossly intact and language grossly intact Estimated Intelligence: consistent with education level Insight: + limited insight Judgement: + limited judgement Vital Signs (Past 24 Hours) Last Vital Signs Temp 36.4 C L 06/28/21 06:54 Pulse 71 06/28/21 06:55 Resp 16 06/28/21 06:54 BP 120/79 06/28/21 06:55 Pulse Ox 98 06/25/21 14:12 Results & Data ([facility]) Current Inpatient Medications Current Inpatient Medications: Current Inpatient Medications Acetaminophen (Acetaminophen 325 Mg Tab) 650 mg PO Q4H PRN PRN Reason: Headache or Minor Fever Stop: 07/25/21 14:10 Acyclovir (Acyclovir 400 Mg Tab) 400 mg PO BID DIONICIO Stop: 07/06/21 20:59 Last Admin: 06/28/21 08:26 Dose: 400 mg Documented by: Al Hydrox/Mg Hydrox/Simethicone (Aluminum/Magnesium Susp 30 Ml Udc) 30 ml PO Q4H PRN PRN Reason: GI Upset Stop: 07/25/21 14:10 Bismuth Subsalicylate (Bismuth Subsalicylate Liqd 236 Ml) 15 ml PO PRN PRN PRN Reason: Loose Stool Stop: 07/25/21 14:10 Hydroxyzine HCl (Hydroxyzine Hcl 25 Mg Tab) 50 mg PO HSZ PRN PRN Reason: Insomnia Stop: 07/25/21 14:10 Hydroxyzine HCl (Hydroxyzine Hcl 25 Mg Tab) 25 mg PO Q4H PRN PRN Reason: Anxiety Stop: 07/25/21 14:10 Magnesium Hydroxide (Magnesium Hydroxide Susp 30 Ml Udc) 30 ml PO DAILY PRN PRN Reason: Constipation Stop: 07/25/21 14:10 Nicotine Polacrilex (Nicotine Polacrilex 2 Mg Gum) 1 piece MT PRN PRN PRN Reason: Nicotine withdrawal Stop: 07/26/21 20:01 Last Admin: 06/27/21 21:47 Dose: 1 piece Documented by: Risperidone (Risperidone 0.5 Mg Tablet) 0.5 mg PO HS DIONICIO Stop: 07/27/21 21:59 Last Admin: 06/27/21 20:41 Dose: 0.5 mg Documented by: Risperidone (Risperidone 0.5 Mg Tablet) 0.25 mg PO QAM DIONICIO Stop: 07/28/21 08:59 Last Admin: 06/28/21 08:26 Dose: 0.25 mg Documented by: Sertraline HCl (Sertraline Hcl 50 Mg Tablet) 25 mg PO QAM DIONICIO Stop: 07/27/21 15:44 Last Admin: 06/28/21 08:25 Dose: 25 mg Documented by: Sodium Chloride (Sodium Chloride 0.65% Na Soln 45 Ml ([place])) 1 - 2 sprays NA PRN PRN PRN Reason: Nasal Dryness/Congestion Stop: 07/25/21 14:10 Trazodone HCl (Trazodone Hcl 50 Mg Tab) 50 mg PO HS PRN PRN Reason: Insomnia Stop: 07/27/21 21:59 Last Admin: 06/27/21 21:46 Dose: 50 mg Documented by: Mental Health & Subst Abuse Tx Therapist Name of Therapist: Vasu Thorne [facility] Occupational Therapy Professor Name of Occupational Therapy Professor: None Post Discharge Appointments Primary Care Physician Name Of Family Doctor: None
[2021-06-28] MEDS: traZODone HCL 50 MG TAB PO PRN (21:35)
[2021-06-29] MEDS: ACYCLOVIR 400 MG TAB PO SCH ×2 (08:32→21:18)
[2021-06-29] MEDS: risperiDONE 0.5 MG TABLET PO SCH ×2 (08:32→21:18)
[2021-06-29] MEDS: SERTRALINE HCL 50 MG TABLET PO SCH (08:32)
--- NOTE | 2021-06-29 11:10 | Psychiatric Progress Note ---
Date of Service June 29, 2021 Impression / Recommendations Impression The patient is a 20 year old man with a history of behavioral dysregulation during childhood and chronic intrusive HI who was admitted for worsening intrusive HI and SI with plans of stabbing himself or jumping off building. Diagnostically seems most consistent with OCD as well as some antisocial behaviors (more consistent with later adolescent onset with better prognostic course of illness). 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 Also engages in binge drinking but does not meet criteria for disorder given no negative consequences per his report and use is intermittent. The patient is deemed unstable and requires psychiatric hospitalization for diagnostic clarification, safety and stabilization, medication management and development of further coping skills. MNPR due to HI that is triggered when around other men. 06/29/21: reviewed care by Dr. Mcwilliams, metabolic labs on file, improving. (1) Obsessive compulsive disorder: (2) Adult antisocial behavior: (3) Suicidal ideation: (4) Homicidal ideations: (5) Mood disorder: 06/29/21: likely increase Risperdal and Zyprexa tomorrow, patient is requesting 100 mg trazodone trial so doesn't have to struggle to fall to sleep as triggering for his thoughts. 06/27/21: Continue current medications and tx plan. 06/26/21: Discontinue oxcarbazepine and seroquel. Start sertraline 25mg qd. Start risperidone 0.25 mg qAM & 0.5 mg qhs. Trazodone 50mg qhs prn for insomnia. 06/25/21: The patient was admitted to the [facility] ([facility] mental health unit) on q15 min checks (behavioral with suicide precautions) for safety. The patient will participate in group, recreational, and milieu therapies and will be offered additional individual and family sessions as clinically appropriate. -fasting glucose and lipid panel -continue with oxcarbazepine 300mg BID -continue with seroquel 300mg qhs and 50mg qd prn -Y-BOCS -attempt records from [place] Suicide Risk Level Suicide Risk Level: Moderate (q15 min suicide checks) Suicide Risk Level Comments: Acute risk decreased to moderate Risk Factors Assessment Male: Yes : Yes Do You Have Access To A Gun?: No Health Problems: No Mental Health Diagnoses: Yes Substance Use Disorders: No Previous Attempt: No Family History of Suicide: No Previous Psychiatric Hospitalization: Yes Hopelessness: Yes Protective Factors Assessment Employed: No Stable Relationships: Yes Supportive Family: Yes Interval History Identifying Information MEGAN CHAPPELL is a 20-year-old man and [employer] melissa who currently lives in [place] with roommates and his girlfriend, has a history of behavioral dysregulation in childhood, and was admitted on 06/25/21 14:11 on a 201 voluntary commitment for SI with plans and non-specific HI. Chief Complaint "My thoughts are more fleeting, I don't have to work to block them out." Review of Systems Sleep Information Total Hours of Sleep: 6.5 Meal Information Percent Meal Consumed - Breakfast: 100 Percent Meal Consumed - Lunch: 100 Percent Meal Consumed - Dinner: 100 Subjective Subjective Patient was seen & assessed and interval progress reviewed with nursing and social work. He reports ongoing improvement, denies medication related side effects. Physical Exam Psychiatric Orientation: alert and oriented x 3 Apperance: appropriately dressed and appropriately groomed Eye Contact: good eye contact Motor Behavior: no abnormal motor movements Speech: normal rate/rhythm/volume of speech Affect: euthymic affect and + flat affect Mood: + depressed mood; no anxious mood and no irritable mood Thought Process: goal directed thought process Thought Content: reality based without delusions Suicidal Thoughts: denies suicidal plan and denies suicidal intent; + reports suicidal thoughts ("fleeting") Homicidal Thoughts: denies homicidal plan and denies homicidal intent; + reports homicidal thoughts (vague non-specific anger toward others, intermittent) Hallucinations: no auditory hallucinations and no visual hallucinations Cognition: attention grossly intact and language grossly intact Estimated Intelligence: consistent with education level Insight: + limited insight Judgement: + limited judgement Vital Signs (Past 24 Hours) Last Vital Signs Temp 36.4 C L 06/29/21 06:41 Pulse 71 06/29/21 06:42 Resp 16 06/29/21 06:41 BP 112/72 06/29/21 06:42 Pulse Ox 98 06/25/21 14:12 Results & Data ([facility]) Current Inpatient Medications Current Inpatient Medications: Current Inpatient Medications Acetaminophen (Acetaminophen 325 Mg Tab) 650 mg PO Q4H PRN PRN Reason: Headache or Minor Fever Stop: 07/25/21 14:10 Acyclovir (Acyclovir 400 Mg Tab) 400 mg PO BID DIONICIO Stop: 07/06/21 20:59 Last Admin: 06/29/21 08:32 Dose: 400 mg Documented by: Al Hydrox/Mg Hydrox/Simethicone (Aluminum/Magnesium Susp 30 Ml Udc) 30 ml PO Q4H PRN PRN Reason: GI Upset Stop: 07/25/21 14:10 Bismuth Subsalicylate (Bismuth Subsalicylate Liqd 236 Ml) 15 ml PO PRN PRN PRN Reason: Loose Stool Stop: 07/25/21 14:10 Hydroxyzine HCl (Hydroxyzine Hcl 25 Mg Tab) 25 mg PO Q4H PRN PRN Reason: Anxiety Stop: 07/25/21 14:10 Magnesium Hydroxide (Magnesium Hydroxide Susp 30 Ml Udc) 30 ml PO DAILY PRN PRN Reason: Constipation Stop: 07/25/21 14:10 Nicotine Polacrilex (Nicotine Polacrilex 2 Mg Gum) 1 piece MT PRN PRN PRN Reason: Nicotine withdrawal Stop: 07/26/21 20:01 Last Admin: 06/27/21 21:47 Dose: 1 piece Documented by: Risperidone (Risperidone 0.5 Mg Tablet) 0.5 mg PO HS DIONICIO Stop: 07/27/21 21:59 Last Admin: 06/28/21 21:34 Dose: 0.5 mg Documented by: Risperidone (Risperidone 0.5 Mg Tablet) 0.25 mg PO QAM [facility] Stop: 07/28/21 08:59 Last Admin: 06/29/21 08:32 Dose: 0.25 mg Documented by: Sertraline HCl (Sertraline Hcl 50 Mg Tablet) 25 mg PO QAM DIONICIO Stop: 07/27/21 15:44 Last Admin: 06/29/21 08:32 Dose: 25 mg Documented by: Sodium Chloride (Sodium Chloride 0.65% Na Soln 45 Ml ([place])) 1 - 2 sprays NA PRN PRN PRN Reason: Nasal Dryness/Congestion Stop: 07/25/21 14:10 Trazodone HCl (Trazodone Hcl 50 Mg Tab) 50 mg PO HS PRN PRN Reason: Insomnia Stop: 07/27/21 21:59 Last Admin: 06/28/21 21:35 Dose: 50 mg Documented by: Trazodone HCl (Trazodone Hcl 100 Mg Tab) 100 mg PO HS DIONICIO Stop: 07/29/21 21:59 Mental Health & Subst Abuse Tx Psychiatrist Name of Psychiatrist: Edy Nevarez Psychiatrist's Date of Appointment with Psychiatrist: 08/01/21 Time of Appointment with Psychiatrist: 9:45am Psychiatric Appointment Comment: [address] [place], [place] Therapist Name of Therapist: Misti Bonilla - Hank Mera Therapist's Date of Therapist Appointment: 07/11/21 Time of Therapist Appointment: 12:30 p.m. Therapy Appointment Comment: [address] [facility], [address], [place] Real Estate Inspector Name of Real Estate Inspector: None Post Discharge Appointments Primary Care Physician Name Of Family Doctor: None
[2021-06-29] MEDS: NICOTINE POLACRILEX 2 MG GUM MT PRN (17:49)
[2021-06-29] MEDS: traZODone HCL 100 MG TAB PO SCH (21:18)
[2021-06-30] MEDS: ACYCLOVIR 400 MG TAB PO SCH ×2 (08:24→21:13)
[2021-06-30] MEDS: risperiDONE 0.5 MG TABLET PO SCH ×2 (08:24→21:12)
[2021-06-30] MEDS: SERTRALINE HCL 50 MG TABLET PO SCH (08:25)
[2021-06-30] MEDS ORDERED: risperiDONE 0.5 MG TABLET PO ONE (09:37)
--- NOTE | 2021-06-30 10:03 | Psychiatric Progress Note ---
Date of Service June 30, 2021 Impression / Recommendations Impression The patient is a 20 year old man with a history of behavioral dysregulation during childhood and chronic intrusive HI who was admitted for worsening intrusive HI and SI with plans of stabbing himself or jumping off building. Diagnostically seems most consistent with OCD as well as some antisocial behaviors (more consistent with later adolescent onset with better prognostic course of illness). 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 Also engages in binge drinking but does not meet criteria for disorder given no negative consequences per his report and use is intermittent. The patient is deemed unstable and requires psychiatric hospitalization for diagnostic clarification, safety and stabilization, medication management and development of further coping skills. MNPR due to obsessions around HI that is triggered when around other men. 06/30/21: slight improvement (1) Obsessive compulsive disorder: (2) Adult antisocial behavior: (3) Suicidal ideation: (4) Homicidal ideations: (5) Mood disorder: 06/30/21: increase in Risperdal 0.5 mg BID, Zoloft 50 mg daily as no evidence of activation. Discussed goal to decrease reliance on atypical when Zoloft more therapeutic. Needs meeting with roommate. 06/29/21: likely increase Risperdal and Zoloft tomorrow, patient is requesting 100 mg trazodone trial so doesn't have to struggle to fall to sleep as triggering for his thoughts. 06/27/21: Continue current medications and tx plan. 06/26/21: Discontinue oxcarbazepine and seroquel. Start sertraline 25mg qd. Start risperidone 0.25 mg qAM & 0.5 mg qhs. Trazodone 50mg qhs prn for insomnia. 06/25/21: The patient was admitted to the [facility] ([facility] mental health unit) on q15 min checks (behavioral with suicide precautions) for safety. The patient will participate in group, recreational, and milieu therapies and will be offered additional individual and family sessions as clinically appropriate. -fasting glucose and lipid panel -continue with oxcarbazepine 300mg BID -continue with seroquel 300mg qhs and 50mg qd prn -Y-BOCS -attempt records from [place] Suicide Risk Level Suicide Risk Level: Moderate (q15 min suicide checks) Risk Factors Assessment Male: Yes : Yes Do You Have Access To A Gun?: No Health Problems: No Mental Health Diagnoses: Yes Substance Use Disorders: No Previous Attempt: No Family History of Suicide: No Previous Psychiatric Hospitalization: Yes Hopelessness: Yes Protective Factors Assessment Employed: No Stable Relationships: Yes Supportive Family: Yes Interval History Identifying Information MEGAN CHAPPELL is a 20-year-old man and [employer] who currently lives in [place] with roommates and his girlfriend, has a history of behavioral dysregulation in childhood, and was admitted on 06/25/21 14:11 on a 201 voluntary commitment for SI with plans and non-specific HI. Chief Complaint "the end game of those thoughts still makes me describe them as HI but I don't want to hurt anybody." Review of Systems Sleep Information Total Hours of Sleep: 8 Meal Information Percent Meal Consumed - Breakfast: 100 Percent Meal Consumed - Lunch: 100 Percent Meal Consumed - Dinner: 100 Subjective Subjective Patient was seen & assessed and interval progress reviewed with nursing and social work. slept better. States that the frequency of his HI intrussive obsessive thoughts was "about the same" yesterday but "hardly any" SI thoughts. He states that thoughts were fleeting in that they "come and go quickly" and he is feeling in more control of them. He is agreeable to increase meds as discussed yesterday. Physical Exam Psychiatric Orientation: alert and oriented x 3 Apperance: appropriately dressed and appropriately groomed Eye Contact: good eye contact Motor Behavior: no abnormal motor movements Speech: normal rate/rhythm/volume of speech Affect: euthymic affect and + flat affect Mood: + depressed mood; no anxious mood and no irritable mood Thought Process: goal directed thought process Thought Content: reality based without delusions Suicidal Thoughts: denies suicidal thoughts, denies suicidal plan and denies suicidal intent Homicidal Thoughts: denies homicidal plan and denies homicidal intent; + reports homicidal thoughts (vague non-specific anger toward others, intermittent) Hallucinations: no auditory hallucinations and no visual hallucinations Cognition: recent memory grossly intact, remote memory grossly intact, attention grossly intact and language grossly intact Estimated Intelligence: consistent with education level Insight: + limited insight Judgement: + limited judgement Vital Signs (Past 24 Hours) Last Vital Signs Temp 36.5 C 06/30/21 06:42 Pulse 82 06/30/21 06:43 Resp 16 06/30/21 06:42 BP 123/79 06/30/21 06:43 Pulse Ox 98 06/25/21 14:12 Results & Data ([facility]) Current Inpatient Medications Current Inpatient Medications: Current Inpatient Medications Acetaminophen (Acetaminophen 325 Mg Tab) 650 mg PO Q4H PRN PRN Reason: Headache or Minor Fever Stop: 07/25/21 14:10 Acyclovir (Acyclovir 400 Mg Tab) 400 mg PO BID DIONICIO Stop: 07/06/21 20:59 Last Admin: 06/30/21 08:24 Dose: 400 mg Documented by: Al Hydrox/Mg Hydrox/Simethicone (Aluminum/Magnesium Susp 30 Ml Udc) 30 ml PO Q4H PRN PRN Reason: GI Upset Stop: 07/25/21 14:10 Bismuth Subsalicylate (Bismuth Subsalicylate Liqd 236 Ml) 15 ml PO PRN PRN PRN Reason: Loose Stool Stop: 07/25/21 14:10 Hydroxyzine HCl (Hydroxyzine Hcl 25 Mg Tab) 25 mg PO Q4H PRN PRN Reason: Anxiety Stop: 07/25/21 14:10 Magnesium Hydroxide (Magnesium Hydroxide Susp 30 Ml Udc) 30 ml PO DAILY PRN PRN Reason: Constipation Stop: 07/25/21 14:10 Nicotine Polacrilex (Nicotine Polacrilex 2 Mg Gum) 1 piece MT PRN PRN PRN Reason: Nicotine withdrawal Stop: 07/26/21 20:01 Last Admin: 06/29/21 17:49 Dose: 1 piece Documented by: Risperidone (Risperidone 0.5 Mg Tablet) 0.5 mg PO BID DIONICIO Stop: 07/30/21 20:59 Sertraline HCl (Sertraline Hcl 50 Mg Tablet) 50 mg PO QAM DIONICIO Stop: 07/31/21 08:59 Sodium Chloride (Sodium Chloride 0.65% Na Soln 45 Ml ([employer] [place])) 1 - 2 sprays NA PRN PRN PRN Reason: Nasal Dryness/Congestion Stop: 07/25/21 14:10 Trazodone HCl (Trazodone Hcl 50 Mg Tab) 50 mg PO HS PRN PRN Reason: Insomnia Stop: 07/27/21 21:59 Last Admin: 06/28/21 21:35 Dose: 50 mg Documented by: Trazodone HCl (Trazodone Hcl 100 Mg Tab) 100 mg PO HS DIONICIO Stop: 07/29/21 21:59 Last Admin: 06/29/21 21:18 Dose: 100 mg Documented by: Mental Health & Subst Abuse Tx Psychiatrist Name of Psychiatrist: Edy Nevarez Psychiatrist's Date of Appointment with Psychiatrist: 08/01/21 Time of Appointment with Psychiatrist: 9:45am Psychiatric Appointment Comment: [address] [place], [place] Therapist Name of Therapist: Misti Bonilla - Hank Mera Therapist's Date of Therapist Appointment: 07/11/21 Time of Therapist Appointment: 12:30 p.m. Therapy Appointment Comment: [address] [facility], [address], [place] Film Washer Name of Film Washer: None Post Discharge Appointments Primary Care Physician Name Of Family Doctor: None
[2021-06-30] MEDS: NICOTINE POLACRILEX 2 MG GUM MT PRN (15:49)
[2021-06-30] MEDS: traZODone HCL 100 MG TAB PO SCH (21:13)
[2021-07-01] MEDS: risperiDONE 0.5 MG TABLET PO SCH (07:51)
[2021-07-01] MEDS: ACYCLOVIR 400 MG TAB PO SCH (07:52)
[2021-07-01] MEDS ORDERED: SERTRALINE HCL 50 MG TABLET PO SCH (09:00)
--- NOTE | 2021-07-01 09:16 | Discharge Summary ---
Date of Service July 01, 2021 History of Present Illness Josias presents for psychiatric admission for a few weeks of worsening "intensity of intrusive thoughts" with SI with various plans and non-specific HI in the context of multiple psychosocial stressors including academic, financial, medication non-adherence and his girlfriend being away. His girlfriend lives with him in [place] but has been gone for the last month for extended inpatient psychiatry treatment. He was brought to the ED via [facility] after r eporting SI and HI during his [employer] urgent teletherapy appointment yesterday. He reports intrusive SI and non-specific HI which have worsened over the last two weeks and seem to be intensifying and he is worried he may act on these thoughts as he is feeling more disconnected from his thoughts and body. He has been thinking about jumping off a building or stabbing himself as well as increased irritability leading to intrusive thoughts of hurting people when he walks by them. These thoughts come "randomly" usually when he is talking to someone directly and it's "a thought of violence toward them like hitting them or any sort of violent action toward them, it's not as much a thought as playing it out in my mind and watching myself do it". He notes the thought comes "but I shoot it down because it's a bad idea". When he was in his teens he would be aggressive toward peers until "I learned to control it". No recent physical altercations or fights or aggression since childhood. These thoughts occur less when he's drinking. He denies any current psychotic symptoms. Sometimes when he falls asleep he worries someone might come into his room and attack him. He deals with this by just trying to fall asleep "because I know the thought is irrational and convince myself it's not going to happen". He's had the intrusive HI since age 10, he never had SI until the last few weeks. Lately he's also felt more hopeless "like life generally is not worth it in the terminologist". Endorses depression symptoms including: decreased sleep (~5 or 6 hours, initial onset insomnia), increased appetite, energy level is stable, no anhedonia (likes going to the gym, writing, [employer] games). Has been struggling academically with keeping up with his work, denies concentration rather states it's about "valuing the work I'm doing so I actually do it". He is currently prescribed seroquel 300mg qhs and 50mg daily prn as well as oxcarbazepine 300mg BID but has only been taking them intermittently recently and skipping doses as he was running low on his scripts because his PCP left the practice so he's between providers as well as financial issues. They were started about one year ago after inpatient admission in [facility] and he recalls the seroquel was to sleep and the trileptal was for mood stabilization. He hasn't told his parents he's here noting "I just don't think it's very i mportant to tell them, I'll tell them when I get out". Notes he views them as more "close friends rather than anything more then that". Physical Exam Psychiatric See admission H&P and DOD assessment. Vital Signs (Past 24 Hours) Last Vital Signs Temp 36.5 C 07/01/21 06:44 Pulse 80 07/01/21 06:45 Resp 16 07/01/21 06:44 BP 119/74 07/01/21 06:45 Pulse Ox 98 06/25/21 14:12 Principal Diagnosis unspecified mood disorder Psychiatric Data See daily stay summary. In short, safety was maintained and the patient was cooperative with care. Medication changes included trial of Risperdal and Zoloft and they tolerated this well. A family session was held with one of his roommates who was comfortable with his return to the apartment/aware of his longstanding thoughts and safety plan was completed prior to discharge. It was confirmed that there are no current restrictions on his return to [employer] to complete classes though the semester is over but he has some work to complete. He does not plan to medically withdrawal at this time. His suicidal thoughts resolved. He continued to have intrussive thoughts about harming others but no immediate plans or intent, the thoughts are longstanding and compulsive in nature and it appears he does meet criteria for OCD. He described the thoughts as readily redirectible and not distressing for him. Risks that can be mitigated have been mitigated. Reviewed re: longer term risks associated with medications to reinforce the need for follow up metabolic and TD. Day of Discharge Assessment Today the patient voices readiness for discharge. They note improvement in mood and deny thoughts to harm self or others. Thoughts remain organized and they are improved from admission. There is no evidence of psychosis. They agree to take mediations as prescribed and keep follow-up appointments. They are stable for discharge to outpatient level of care. Transition of Care Transition Of Care Record: was reviewed with the patient Advance Directives Advance Directives Information Provided: Yes Advance Directives: No Mental Health Advance Directive: No Advance Directives on File: No Living Will: No Power of Hide Splitter: No Advance Directives Reason:: Declines as Mental Health Visit. Suicide Risk Level Suicide Risk Level Comments: low--stable for discharge to outpatient level of care Risk Factors Assessment Male: Yes : Yes Do You Have Access To A Gun?: No Health Problems: No Mental Health Diagnoses: Yes Substance Use Disorders: No Previous Attempt: No Family History of Suicide: No Previous Psychiatric Hospitalization: Yes Hopelessness: Yes Protective Factors Assessment Employed: No Stable Relationships: Yes Supportive Family: Yes Tobacco Cessation at Discharge Tobacco Cessation Medication Prescribed at Discharge: Offered & Pt Refused Total Time Total Time Spent: Greater Than 30 Minutes Discharge Data Lab Results 06/25/21 06/25/21 06/25/21 10:53 10:53 11:04 WBC RBC Hgb Hct MCV MCH MCHC RDW Std Deviation RDW Coeff of Teressa Plt Count MPV Immature Gran % (Auto) Neut % (Auto) Lymph % (Auto) Tift % (Auto) Eos % (Auto) Baso % (Auto) Neut # (Auto) Lymph # (Auto) Tift # (Auto) Eos # (Auto) Baso # (Auto) Immature Gran # (Auto) Sodium Potassium Chloride Carbon Dioxide Anion Gap BUN Creatinine Est Cr Clr Drug Dosing Est GFR ( Amer) Est GFR (Non-Af Amer) BUN/Creatinine Ratio Glucose Fasting Glucose Calcium Total Bilirubin AST ALT Alkaline Phosphatase Total Protein Albumin Globulin Albumin/Globulin Ratio Triglycerides Cholesterol LDL Cholesterol, Calc VLDL Cholesterol, Calc HDL Cholesterol Cholesterol/HDL Ratio TSH Urine Color Yellow Urine Appearance Clear Urine pH 6.5 Ur Specific [place] 1.007 Urine Protein Negative Urine Glucose (UA) Negative Urine Ketones Negative Urine Blood Negative Urine Nitrite Negative Urine Bilirubin Negative Urine Urobilinogen Negative Ur Leukocyte Esterase Negative Salicylates Urine Opiates Screen Neg Ur Methadone, Qual Neg Acetaminophen Urine Barbiturates Neg Ur Phencyclidine (PCP) Neg U Amphetamin/Meth Scrn Neg MDMA (Ecstasy) Screen Neg U Benzodiazepines Scrn Neg Ur Cocaine Metabolite Neg U Marijuana (THC) Screen Neg Ethyl Alcohol mg/dL SARS-CoV-2, RNA, NAAT NEGATIVE 06/25/21 06/25/21 06/25/21 11:16 11:16 11:16 WBC 4.78 L RBC 5.38 Hgb 16.2 Hct 46.5 MCV 86.4 MCH 30.1 MCHC 34.8 RDW Std Deviation 40.9 RDW Coeff of Teressa 12.9 Plt Count 262 MPV 9.8 Immature Gran % (Auto) 0.4 Neut % (Auto) 52.6 Lymph % (Auto) 33.7 Tift % (Auto) 9.8 Eos % (Auto) 3.1 Baso % (Auto) 0.4 Neut # (Auto) 2.51 Lymph # (Auto) 1.61 Tift # (Auto) 0.47 Eos # (Auto) 0.15 Baso # (Auto) 0.02 Immature Gran # (Auto) 0.02 Sodium 139 Potassium 4.5 Chloride 105 Carbon Dioxide 30 Anion Gap 4 BUN 13 Creatinine 1.22 Est Cr Clr Drug Dosing 120.4 Est GFR ( Amer) 98.3 Est GFR (Non-Af Amer) 84.8 BUN/Creatinine Ratio 10.7 Glucose 87 Fasting Glucose Calcium 9.5 Total Bilirubin 0.6 AST 16 ALT 15 Alkaline Phosphatase 89 Total Protein 7.0 Albumin 4.5 Globulin 2.5 Albumin/Globulin Ratio 1.8 Triglycerides Cholesterol LDL Cholesterol, Calc VLDL Cholesterol, Calc HDL Cholesterol Cholesterol/HDL Ratio TSH 1.987 Urine Color Urine Appearance Urine pH Ur Specific [place] Urine Protein Urine Glucose (UA) Urine Ketones Urine Blood Urine Nitrite Urine Bilirubin Urine Urobilinogen Ur Leukocyte Esterase Salicylates Urine Opiates Screen Ur Methadone, Qual Acetaminophen Urine Barbiturates Ur Phencyclidine (PCP) U Amphetamin/Meth Scrn MDMA (Ecstasy) Screen U Benzodiazepines Scrn Ur Cocaine Metabolite U Marijuana (THC) Screen Ethyl Alcohol mg/dL SARS-CoV-2, RNA, NAAT 06/25/21 06/25/21 06/27/21 11:16 11:16 08:12 WBC RBC Hgb Hct MCV MCH MCHC RDW Std Deviation RDW Coeff of Teressa Plt Count MPV Immature Gran % (Auto) Neut % (Auto) Lymph % (Auto) Tift % (Auto) Eos % (Auto) Baso % (Auto) Neut # (Auto) Lymph # (Auto) Tift # (Auto) Eos # (Auto) Baso # (Auto) Immature Gran # (Auto) Sodium Potassium Chloride Carbon Dioxide Anion Gap BUN Creatinine Est Cr Clr Drug Dosing Est GFR ( Amer) Est GFR (Non-Af Amer) BUN/Creatinine Ratio Glucose Fasting Glucose 87 Calcium Total Bilirubin AST ALT Alkaline Phosphatase Total Protein Albumin Globulin Albumin/Globulin Ratio Triglycerides 87 Cholesterol 132 LDL Cholesterol, Calc 72 VLDL Cholesterol, Calc 17 HDL Cholesterol 43 Cholesterol/HDL Ratio 3.1 TSH Urine Color Urine Appearance Urine pH Ur Specific [place] Urine Protein Urine Glucose (UA) Urine Ketones Urine Blood Urine Nitrite Urine Bilirubin Urine Urobilinogen Ur Leukocyte Esterase Salicylates < 3.0 L Urine Opiates Screen Ur Methadone, Qual Acetaminophen < 3 L Urine Barbiturates Ur Phencyclidine (PCP) U Amphetamin/Meth Scrn MDMA (Ecstasy) Screen U Benzodiazepines Scrn Ur Cocaine Metabolite U Marijuana (THC) Screen Ethyl Alcohol mg/dL < 10.0 SARS-CoV-2, RNA, NAAT Hospital Course (1) Obsessive compulsive disorder: (2) Adult antisocial behavior: (3) Suicidal ideation: (4) Homicidal ideations: (5) Mood disorder: 06/30/21: increase in Risperdal 0.5 mg BID, Zoloft 50 mg daily as no evidence of activation. Discussed goal to decrease reliance on atypical when Zoloft more therapeutic. Needs meeting with roommate. 06/29/21: likely increase Risperdal and Zoloft tomorrow, patient is requesting 100 mg trazodone trial so doesn't have to struggle to fall to sleep as triggering for his thoughts. 06/27/21: Continue current medications and tx plan. 06/26/21: Discontinue oxcarbazepine and seroquel. Start sertraline 25mg qd. Start risperidone 0.25 mg qAM & 0.5 mg qhs. Trazodone 50mg qhs prn for insomnia. 06/25/21: The patient was admitted to the [facility] ([facility]) on q15 min checks (behavioral with suicide precautions) for safety. The patient will participate in group, recreational, and milieu therapies and will be offered additional individual and family sessions as clinically appropriate. -fasting glucose and lipid panel -continue with oxcarbazepine 300mg BID -continue with seroquel 300mg qhs and 50mg qd prn -Y-BOCS -attempt records from [facility] & Subst Abuse Tx Psychiatrist Name of Psychiatrist: Edy Nevarez Psychiatrist's Date of Appointment with Psychiatrist: 08/01/21 Time of Appointment with Psychiatrist: 9:45am Psychiatric Appointment Comment: [address] [place], [place] Therapist Name of Therapist: [facility] - Hank Mera Therapist's Date of Therapist Appointment: 07/11/21 Time of Therapist Appointment: 12:30 p.m. Therapy Appointment Comment: [address] [facility], [address], [place] Chinese Instructor Name of Chinese Instructor: None Post Discharge Appointments Primary Care Physician Name Of Family Doctor: None Smoking Cessation Counseling Tobacco Cessation Medication Prescribed at Discharge: Offered & Pt Refused Other #1: Name of Aftercare Appointment: [facility]- Carole Mera Phone Number of Aftercare Appointment: [phone] Date of Aftercare Appointment: 07/02/21 Time of Aftercare Appointment: 9 a.m Aftercare Appointment Comment: [facility] [employer] link: [email or web address] Release of Information Aftercare Appointment: Obtained, Reviewed and Signed Discharge Plan Discharge Items Patient Disposition: Home - Self-Care Reason For Visit: MOOD DISORDER NOS Discharge Diagnosis: mood disorder unspecified Activity: Resume your previous activity Non-emergency contact: Primary Care Provider, Psychiatrist and Therapist Call non-emergency contact if: you have any medication questions and your symptoms worsen Follow-up/Referrals: PCP,NO [Primary Care Provider] - Diet: Regular Addtl Attending Provider Instructions: SPECIAL CARE INSTRUCTIONS: 1. Follow through with your scheduled aftercare appointments. If unable to keep an appointment, please call to reschedule. 2. Take your medication only as prescribed. Medication should not be changed or stopped without the approval of your doctor. In the event of worsening symptoms or concerns about side effects, contact your doctor immediately. 3. Utilize new healthy coping skills, anger management skills, and stress management skills learned during your hospitalization. Journal feelings and process them with a support person. Identify stressors or situations that may result in relapse, deterioration or inappropriate behaviors and develop a plan to deal with those issues. 4. If your coping skills are ineffective and you are in crisis, contact your outpatient providers for direction. If unable to reach your providers, please call the [facility] CRISIS LINE AT , go to the [facility] walk-in center at [address], [address], [place], or go to the closest Emergency Room. 5. Avoid alcohol and un-prescribed drugs. 6. You have been provided with the Mental Health Advance Directives Pamphlet for your review. 7. Your condition is stable for discharge to outpatient level of care, but recovery is an ongoing process. Ifthoughts to harm yourself or others return, follow the safety plan developed during your stay. Planning for a safe return home includes securing weapons. Our treatment team recommends weaponsbe removed from the home until your outpatient provider reassesses your progress. In rare cases where the items themselvescannot be removed, guns and ammunitionshould be secured separatelyand keys stored by a reliable personoutside of the home. If you were admitted on an involuntary commitment, the police or other legal authorities may be involved in this process. AFTERCARE APPOINTMENTS: * Please call your insurance company prior to your scheduled appointment to confirm your aftercare providers are covered. Take your insurance information to your appointments. WHO TO CALL AND WHEN: Medical Emergencies: For questions or emergencies related to your hospital stay, please contact the Inpatient Behavioral Health Unit at [phone]. A presentation manager is on-call 15/09 for the Behavioral Health Unit for emergencies At any time you feel your situation is an emergency, you may also call 911 immediately. Pending Studies at Discharge: No Stand-Alone Forms: My [facility], Smoking Cessation Medications and DC Order Prescriptions: New trazodone 100 mg Tablet 100 mg PO HS 30 Days Qty: 30 RF: 0 sertraline 50 mg Tablet 50 mg PO QAM 30 Days Qty: 30 RF: 0 risperidone 0.5 mg Tablet 0.5 mg PO BID 30 Days Qty: 60 RF: 0 Continued acyclovir 400 mg PO BID RF: 0 Discontinued oxcarbazepine 300 mg PO BID RF: 0 quetiapine 50 mg PO QAM RF: 0 oxcarbazepine 150 mg PO BID RF: 0 Discharge Orders: Discharge Order (Routine); Ordered 07/01/21 Ordered By: Alina Lainez Admission Data Admit Date/Time: 06/25/21 14:11 Attending Provider: Alina Lainez Admit Provider: Addis Mcwilliams Primary Care Provider: PCP,NO Other Interventions: Discharge Summary Assessment (RN) Last Done: 07/01/21 09:41 PSY Interdisciplinary Discharge Planning Last Done: 07/01/21 11:49 Coding Level of Care Code 22193 D/C day mgmt > 30 min Diagnoses Obsessive compulsive disorder F42.9 Adult antisocial behavior Z72.811 Suicidal ideation R45.851 Homicidal ideations R45.850 Mood disorder F39
== END 2021-07-01 11:55 | disposition home or self-care (01) | DRG 885 ==
LOC: ED 10:36 → 3S 14:11 → SUATTDRO 14:11 → 3S 14:40